=== PATIENT | female | born 1980 | race African-American/Black ===

== ENCOUNTER 2021-04-18 23:29 | Emergency (ER) | payer OTHER ==
[~2021-04-18] VITALS: Ht 170.2 cm; Wt 70.3 kg
[~2021-04-18 23:29] MED LIST: AMOXICILLIN 50500 M1 PO; FLEXERIL PO; MECLIZINE HCL25 M1 PO; NAPROSYN500 MG PO; NOHOMEMEDICATIONS
[2021-04-19 00:50] VITALS: BP 114/75
== END 2021-04-19 00:50 | disposition home or self-care (01) ==
LOC: M.ERS 23:29
DX: T24.112A Burn of first degree of left thigh, initial encounter (principal); T24.111A Burn of first degree of right thigh, initial encounter; X10.1XXA Contact with hot food, initial encounter; Y93.89 Activity, other specified; Y92.89 Other specified places as the place of occurrence of the external cause; Y99.8 Other external cause status